=== PATIENT | female | born 1970 | race Caucasian/White ===

== ENCOUNTER 2019-12-16 10:05 | Emergency (ER) | payer OTHER, SELFPAY ==
--- NOTE | ~2019-12-16 | XR_ITS ---
XR ankle RT min 3V DATE: 12/16/2019 10:31 INDICATION: Medial ankle pain TECHNIQUE: 4 views COMPARISON: 11/09/2016 right ankle FINDINGS: There is an up to 0.5 mm wide approximately 1.5 mm long calcification or small smooth corti renny bone density situated approximately 1.5 mm medial to the lower aspect of the medial malleolus of the distal tibia. This is a new finding since 11/09/2016 and may be a small soft tissue calcification or small cortical avulsion injury, likely chronic due to the smooth margins. There is mild soft tissu e swelling of the medial aspect of the ankle. No fracture, dislocation or disruption of ankle mortise is evident otherwise. IMPRESSION: Mild medial soft tissue swelling Reviewed, dictated and finalized at location A.
[2019-12-16 10:19] VITALS: BP 126/74; PULSE 94; RESP 16; TEMP 37.1; O2SAT 97
--- NOTE | 2019-12-16 10:22 | ED.GENADULT ---
HPI - General Adult General Chief complaint: Extremity Injury, Lower Stated complaint: right ankle pain Source: patient and RN notes reviewed Mode of arrival: ambulatory Limitations: no limitations History of Present Illness HPI narrative: This is a 49 years old female presented office for evaluations of right ankle pain for 10 days. Symptoms began after she was playing tennis. She does not remember rolling her ankle however she complained of pain after she played tennis. She has been tented her symptoms with elevation, Favian wrap, and pain medication [id number]. Admits to history of fifth metatarsal fracture in the past. Denies any other injury. Related Data Allergies Allergy/AdvReac Type Severity Reaction Status Date / Time pseudoephedrine Allergy Unknown anxious Verified 05/20/19 11:05 PSEUDOEPHEDRINE HCL Allergy Mild ANXIOUS Uncoded 05/20/19 11:05 Review of Systems Review of Systems: Narrative: CONSTITUTIONAL: Denies feelingill CARDIOVASCULAR: Denies chest injury RESPIRATORY: Denies dyspnea, cough GASTROINTESTINAL: Denies abdominal pain, nausea, vomiting SKIN: Reports bruising on her right ankle initially; but not currently MUSCULOSKELETAL: Reports right ankle pain especially with walking NEUROLOGIC: Denies lightheaded All other systems reviewed are negative, except as documented in HPI. [facility] Past Medical History Medical History (Updated 12/16/19 @ 11:05 by BIANCA Sheppard) Bilateral bunions HTN (hypertension) Family History Family History Mother Family history of gallbladder disease Social History Social History Smoking status: Never smoker Second hand tobacco smoke exposure: No Alcohol intake: never Substance use: never Substance use type: does not use Gender identity (if verbalized by the patient): Female Comments At time of signature, I agree with nursing past medical, surgical, social and family history. There is no relevant family history pertinent to the presenting complaint. Exam Narrative: Exam Narrative: GENERAL: This is a well-nourished, well-developed patient, in no apparent distress. CARDIOVASCULAR: Regular rate and rhythm without murmurs, gallops, or rubs. RESPIRATORY: Clear to auscultation. Breath sounds equal bilaterally. No wheezes, rales, or rhonchi. GASTROINTESTINAL: Abdomen soft, non-tender, nondistended. Bowel sounds are active. No hepato-splenomegaly, or palpable masses. No guarding. SKIN: warm, intact with no suspicious lesions or rash, good texture and turgor. NEURO: awake, alert, and oriented to person, place and time. There were no obvious focal neurologic abnormalities. EXTREMITIES: The right ankle is NOT swollen; however there is tender over the media aspect over distal fibular process but the skin is intact and there is no ligamentous instability. There is no deformity. The foot and toes are warm and well-perfused. Sensation to pain and light touch is intact. Bunion over great toe noted. Course Vital Signs Vital signs: Vital Signs Temperature 98.7 F 12/16/19 10:19 Pulse Rate 94 12/16/19 10:19 Respiratory Rate 16 12/16/19 10:19 Blood Pressure 126/74 12/16/19 10:19 Pulse Oximetry 97 12/16/19 10:19 Temperature 98.7 F 12/16/19 10:19 Pulse Rate 94 12/16/19 10:19 Respiratory Rate 16 12/16/19 10:19 Blood Pressure 126/74 12/16/19 10:19 Pulse Oximetry 97 12/16/19 10:19 Medical Decision Making MDM Narrative Medical decision making narrative: Discharge instructions reviewed with patient, as well as provided in writing per nursing staff. The instructions also include specific and strict return/GO TO THE ER as well as f/u information. All questions have been answered, and the patient deny any further questions with discharge and discharge plan. Differential Diagnosis Differential Diagnosis: fracture, sprain,s
== END 2019-12-16 11:10 | disposition home or self-care (01) ==
PROVIDERS: Emergency Provider Nurse Practitioner; PCP Family Medicine
DX: S93.401A Sprain of unspecified ligament of right ankle, initial encounter (principal); S96.911A Strain of unspecified muscle and tendon at ankle and foot level, right foot, initial encounter; I10 Essential (primary) hypertension; X58.XXXA Exposure to other specified factors, initial encounter; Y93.73 Activity, racquet and hand sports
CPT/HCPCS: 73610; 99213; G0463

== ENCOUNTER 2020-03-17 17:48 | Outpatient (CLI) | payer OTHER, SELFPAY ==
--- NOTE | ~2020-03-17 | XR_ITS ---
EXAMINATION: XR elbow LT min 3V DATE: 03/17/2020 18:12 INDICATION: Left elbow pain TECHNIQUE: Anteroposterior, two oblique and lateral views of the left elbow were obtained. COMPARISON: None. FINDINGS: Alignment is normal. No fracture or joint effusion. Joint spaces are normal. There is mild posterior soft tissue swelling overlying the olecranon. No radiopaque foreign body is identified. IMPRESSION: 1. Mild posterior soft tissue swelling without associated osseous abnormality. Reviewed, dictated and finalized at location A.
== END 2020-03-17 17:49 | disposition home or self-care (01) ==
PROVIDERS: PCP Family Medicine; Visit Provider Family Medicine
DX: M25.422 Effusion, left elbow (principal); M79.89 Other specified soft tissue disorders
CPT/HCPCS: 73080

== ENCOUNTER 2020-04-14 15:19 | Outpatient (CLI) | payer OTHER, SELFPAY ==
--- NOTE | ~2020-04-14 | XR_ITS ---
EXAMINATION: XR chest 2V 04/14/2020 15:52 INDICATION: Shortness of breath. Headache. PROCEDURE: 2 view chest COMPARISON: 08/02/2015 FINDINGS: The lungs are clear. The cardiomediastinal silhouette is within normal limits. There are no pleural effusions. There is no pneumothorax suspected. IMPRESSION: 1: NO ACUTE CARDIOPULMONARY DISEASE. Reviewed, dictated and finalized at location B.
[2020-04-14 16:20] LABS: Hematocrit 41.6 % (37.0-47.0); Hemoglobin 14.6 g/dL (12.0-15.0); Mean Corpuscular HGB Conc 35.1 g/dl (32-36); Mean Corpuscular Hemoglobin 30.8 pg (26-34); Mean Corpuscular Volume 87.8 fl (80-100); Mean Platelet Volume 9.8 fl (7.4-10.4); Platelet Count Result 171 k/mm3 (150-375); Red Blood Count 4.74 M/mm3 (4.2-5.4); Red Cell Distribution Width 11.9 % (11.5-14.5); White Blood Count 20.6 K/mm3 (4.5-10.0)
[2020-04-14 16:47] LABS: Band Neutrophils Percent 8 % (0-6); Eosinophils Percent Manual 1 % (0-4); Lymphocytes Absolute Manual 2.67 K/mm3 (1.1-4.5); Monocytes Percent Manual 1 % (3-9); Neutrophils Absolute Manual 17.51 K/mm3 (1.7-7.2); Neutrophils Percent Manual 77 % (46-73); Total Cells Counted 100
[2020-04-14 16:49] LABS: Platelet Estimate Adequate (Adequate)
[2020-04-14 16:56] LABS: Erythrocyte Sedimentation Rate 19 mm/hr (0-20)
== END 2020-04-14 15:20 | disposition home or self-care (01) ==
PROVIDERS: PCP Family Medicine; Visit Provider Physician Assistant
DX: R06.02 Shortness of breath (principal); R50.9 Fever, unspecified
CPT/HCPCS: 36415; 71046; 85025; 85652

== ENCOUNTER → 2021-08-29 16:05 | Outpatient (CLI) | payer OTHER, SELFPAY ==
--- NOTE | ~2021-08-29 | MM_ITS ---
EXAMINATION: MM screening gauri BI w bee HISTORY: Screening TECHNIQUE: Craniocaudal and mediolateral oblique 3-D tomosynthesis images were obtained and synthetic 2-D images were generated. CAD analysis was submitted and interpreted. COMPARISON: Comparison to multiple prior studies sequentially, with oldest reviewed study dated 08/2013. BREAST PARENCHYMAL COMPOSITION: The breasts are almost entirely fatty. FINDINGS: There is no evidence of suspicious mass, calcification, or architectural distortion to sugg est malignancy in either breast. There has been no suspicious interval change. IMPRESSION: 1. No mammographic evidence of malignancy. 2. Recommend routine screening mammography in one year. BI-RADS Category 1: Negative Reviewed, dictated and finalized at location A. 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
== END ==
PROVIDERS: Visit Provider Nurse Practitioner Obstetrics & Gynecology
DX: Z12.31 Encounter for screening mammogram for malignant neoplasm of breast (principal)
CPT/HCPCS: 77063; 77067

== ENCOUNTER → 2021-11-23 08:50 | Outpatient (CLI) | payer OTHER, SELFPAY ==
--- NOTE | ~2021-11-23 | MMUS_ITS ---
EXAMINATION: MM diagnostic gauri LT w bee, US breast LT limited HISTORY: Left breast pain. Left breast lump deep along the chest wall. TECHNIQUE: Full field and spot left MLO, MLO and CC 3-D tomosynthesis images were performed and synth etic 2-D images were generated. Rotated lateral CC and rotated medial CC views. CAD analysis was subm itted and interpreted. High resolution targeted left breast ultrasound at area of clinical complaint of left breast lump was performed. COMPARISON: 08/29/2021, 02/03/2019, 01/09/2018 bilateral screening mammogram examinations BREAST PARENCHYMAL COMPOSITION: The breasts are almost entirely fatty. FINDINGS: MAMMOGRAPHIC FINDINGS: No suspicious mass or architectural distortion, malignant calcification, skin thickening or retractio n or significant new or developing density is detected. ULTRASOUND: No suspicious mass or shadowing is detected Clinical complaint at 11:00 6 cm from the nipple. IMPRESSION: 1. No mammographic evidence of malignancy 2. Routine mammographic screening is recommended BI-RADS Category 1: Negative Reviewed, dictated and finalized at location A. IMPRESSION: 1. No mammographic evidence of malignancy 2. Routine mammographic screening is recommended BI-RADS Category 1: Negative
== END ==
PROVIDERS: PCP Family Medicine; Visit Provider Nurse Practitioner Obstetrics & Gynecology
DX: N64.4 Mastodynia (principal)
CPT/HCPCS: 76642; 77061; 77065; G0279

== ENCOUNTER 2022-06-04 08:50 | Day surgery (SDC) | payer OTHER, SELFPAY ==
[2022-05-30 11:36] VITALS: BMI 25.4
[2022-06-04 09:30] VITALS: BP 124/83; PULSE 77; RESP 20; TEMP 36.4; O2SAT 100
[2022-06-04] MEDS: LACTATED RINGERS 1,000 ML 150 ML IV CONT (09:53)
--- NOTE | 2022-06-04 10:11 | P.PNAN_ITS ---
Anes - Initial Pre Proc Eval Procedure: Operation Date: 06/04/22 10:30 Proposed Procedures p Screening Colonoscopy - Dada Foster MD Date/Time: 06/04/22 10:11 Surgeon: Dada Foster MD Pre Op Diagnosis: Neoplasm Screening Patient Data Age: 52 Gender: F Height: 1.6 m Weight: 64.8 kg Last Vital Signs Temp 36.4 C 06/04/22 09:30 Pulse 77 06/04/22 09:30 Resp 20 06/04/22 09:30 BP 124/83 06/04/22 09:30 Pulse Ox 100 06/04/22 09:30 O2 Del Method Room Air 06/04/22 09:30 Allergies Allergy/AdvReac Type Severity Reaction Status Date / Time augmentin AdvReac Intermediate Other Uncoded 06/04/22 09:28 Home Medications Medication Instructions Recorded Confirmed Type drospirenone (contraceptive) 4 mg 1 tablet PO DAILY 01/22/22 06/04/22 History (28) tablet (Slynd) lisinopril 10 1 tablet PO DAILY #90 tabs 01/22/22 06/04/22 Rx mg-hydrochlorothiazide 12.5 mg tablet Patient hx anesthesia problems: none Family hx anesthesia problems: none Results Review: All pre-operative results and documents have been reviewed as part of the pre- operative evaluation. [facility] Past Medical History Medical History Avulsion injury of ankle region Bilateral bunions Cat scratch fever Deltoid (ligament), ankle sprain Fall Hallux valgus Hammertoe, bilateral HTN (hypertension) Seizures Sprain of deltoid ligament of unspecified ankle, subsequent encounter Vision abnormalities Surgical History Surgical History History of section complicating History of laparoscopic cholecystectomy Family History Family History Mother Family history of gallbladder disease Unknown Hypertension Cardiovascular disease Social History Social History Social History: Smoking status: Never smoker Second hand tobacco smoke exposure: No Alcohol intake: current Substance use: never Substance use type: does not use Living arrangements: with family Gender identity (if verbalized by the patient): Female Sexual Orientation (if Verbalized by the Patient): Straight or Heterosexual Spiritual care concerns: No Anes - Eval Final PreProcedure Day of Procedure 06/04/22 10:11 Patient weight: normal Heart: regular rate and rhythm Lungs: clear to auscultation Airway: Mallampati scale class II Neurological: alert and oriented Last oral intake: >/= 8 hours ASA classification: II Emergent: no Anesthetic plan: proceed Anesthesia type and monitoring: general GIVS and standard monitoring Results Review: All pre-operative results and documents have been reviewed as part of the pre- operative evaluation. Informed Consent: The patient's anesthetic plan and its attendant risks and benefits were discussed with the patient/family/POA. Questions were solicited and answers provided to the satisfaction of the patient/family/POA.
--- NOTE | 2022-06-04 10:32 | PM.HPGS ---
History of Present Illness History of Present Illness Consent: Risks, benefits, and alternatives have been discussed and questions answered. Patient agrees to proceed with procedure. Chief complaint: Neoplasm Screening Narrative: Pamela Lan is a 52 year old female here for screening colonoscopy, last one about 10 years ago Review of Systems Constitutional: Constitutional: Denies headache(s) and Denies weakness Eyes: Eyes: Denies blurry vision ENT: Reports Normal hearing present, Denies headache(s) and Denies neck pain Cardiovascular: Cardiovascular: Denies chest pain and Denies dyspnea Respiratory: Respiratory: Denies dyspnea Gastrointestinal: Gastrointestinal: Reports no additional gastrointestinal complaints Genitourinary: Genitourinary: Denies dysuria Musculoskeletal: Musculoskeletal: Denies neck pain Integumentary/Breasts: Skin/Breast: Denies dry skin Neurologic: Reports Normal hearing present, Denies headache(s) and Denies weakness Psychiatric: Psychiatric: Denies anxiety Endocrine: Endocrine: Denies change in body appearance Hematologic/Lymphatic: Hematologic/Lymphatic: Denies easy bleeding Allergic/Immunologic: Allergic/Immunologic: Denies urticaria PMFSH Past Medical History Medical History Avulsion injury of ankle region Bilateral bunions Cat scratch fever Deltoid (ligament), ankle sprain Fall Hallux valgus Hammertoe, bilateral HTN (hypertension) Seizures Sprain of deltoid ligament of unspecified ankle, subsequent encounter Vision abnormalities Surgical History Surgical History History of section complicating History of laparoscopic cholecystectomy Family History Family History Mother Family history of gallbladder disease Unknown Hypertension Cardiovascular disease Social History Social History Social History: Smoking status: Never smoker Second hand tobacco smoke exposure: No Alcohol intake: current Substance use: never Substance use type: does not use Living arrangements: with family Gender identity (if verbalized by the patient): Female Sexual Orientation (if Verbalized by the Patient): Straight or Heterosexual Spiritual care concerns: No Meds Home Medications and Allergies Home Medications Medication Instructions Recorded Confirmed Type drospirenone (contraceptive) 4 mg 1 tablet PO DAILY 01/22/22 06/04/22 History (28) tablet (Slynd) lisinopril 10 1 tablet PO DAILY #90 tabs 01/22/22 06/04/22 Rx mg-hydrochlorothiazide 12.5 mg tablet Allergies Allergy/AdvReac Type Severity Reaction Status Date / Time augmentin AdvReac Intermediate Other Uncoded 06/04/22 09:28 Vital Signs Vital Signs - 24 hr 06/04/22 09:30 Temperature 97.6 F Pulse Rate 77 Respiratory Rate 20 Blood Pressure 124/83 Pulse Oximetry 100 Oxygen Delivery Room Air Exam Const: General: comfortable and no acute distress HENMT: Face/Nose/Sinus: Normal nares present Eyes: General: appearance normal, both eyes and all related structures Neck: Neck: no JVD Resp: Auscultation: clear to auscultation bilaterally Cardio: Rate: regular rate Rhythm: regular rhythm GI: Inspection: non-distended GI Palp: Yes Soft to palpation Skin: General skin exam: normal color Neuro: General: gait normal Speech: normal speech Extrem: General: normal to inspection Psych: Mental Status: mental status grossly normal Assessment and Plan Assessment and plan (1) Colon cancer screening: Code(s): Z12.11 - Encounter for screening for malignant neoplasm of colon Status: Acute Assessment and Plan: colonoscopy
[2022-06-04 10:55] VITALS: BP 88/66; PULSE 80; RESP 16; O2SAT 96
[2022-06-04 11:05] VITALS: BP 97/71; PULSE 76; RESP 16; O2SAT 100
[2022-06-04 11:15] VITALS: BP 106/70; PULSE 86; RESP 20; O2SAT 100
--- NOTE | 2022-06-04 11:33 | WPDANESPN ---
Anes - Prog Note Post-Op Date/Time: 06/04/22 11:33 Cardiovascular status: normal Respiratory status: normal Airway patency: baseline Mental status: baseline Post-Op hydration status: normal Vital Signs: Last Vital Signs Temp 36.4 C 06/04/22 09:30 Pulse 86 06/04/22 11:15 Resp 20 06/04/22 11:15 BP 106/70 06/04/22 11:15 Pulse Ox 100 06/04/22 11:15 O2 Del Method Room Air 06/04/22 11:15 Pain Score (VAS): 0 I/O: Intake & Output 06/03/22 06/04/22 06/04/22 23:59 07:59 15:59 Intake Total 300 Balance 300 Patient Feedback: Patient satisfied with anesthetic care.
== END 2022-06-04 11:35 | disposition home or self-care (01) ==
PROVIDERS: PCP Family Medicine; Visit Provider Internal Medicine Gastroenterology
PROC: 0DJD8ZZ Inspection of Lower Intestinal Tract, Via Natural or Artificial Opening Endoscopic (ICD-10-PCS; CPT 45378; principal; 2022-06-04 10:30)
DX: Z12.11 Encounter for screening for malignant neoplasm of colon (principal)
CPT/HCPCS: 45378

== ENCOUNTER → 2023-03-19 16:08 | Outpatient (CLI) | payer OTHER, SELFPAY ==
--- NOTE | ~2023-03-19 | MM_ITS ---
EXAMINATION: MM screening gauri BI w bee HISTORY: Screening mammogram TECHNIQUE: Craniocaudal and mediolateral oblique 3-D tomosynthesis images were obtained and synthetic 2-D images were generated. CAD analysis was submitted and interpreted. COMPARISON: 11/23/2021 diagnostic left mammogram and limited left breast ultrasound 08/29/2021, 02/03/2019 bilateral screening mammogram examinations BREAST PARENCHYMAL COMPOSITION: There are scattered areas of fibroglandular density. FINDINGS: Stable small benign appearing circumscribed low-density intramammary lymph nodes in the out er right breast, unchanged since 02/03/2019. There is no evidence of suspicious mass, calcification, o r architectural distortion to suggest malignancy in either breast. There has been no suspicious inter kandy change. IMPRESSION: 1. No mammographic evidence of malignancy. 2. Recommend routine screening mammography in one year. BI-RADS Category 2: Benign finding(s). Reviewed, dictated and finalized at location A.
== END ==
PROVIDERS: PCP Nurse Practitioner Obstetrics & Gynecology; Visit Provider Nurse Practitioner Obstetrics & Gynecology
DX: Z12.31 Encounter for screening mammogram for malignant neoplasm of breast (principal)
CPT/HCPCS: 77063; 77067

== ENCOUNTER 2023-12-17 16:21 | Outpatient (CLI) | payer OTHER, SELFPAY ==
[2023-12-17 17:19] LABS: Alanine Aminotransferase 31 U/L (6-35); Albumin Level 5.1 g/dL (3.5-5.1); Alkaline Phosphatase 101 U/L (38-126); Anion Gap 11 mmol/L (4-12); Aspartate Amino Transferase 34 U/L (14-36); Bilirubin,Total 0.9 mg/dL (0.2-1.3); Blood Urea Nitrogen 8 mg/dL (7-17); CRP < 0.5 mg/dL (<1.0); Calcium 9.8 mg/dL (8.4-10.2); Carbon Dioxide 27 mmol/L (22-30); Chloride 100 mmol/L (98-107); Estimated Glomerular Filt Rate > 60; Glucose 98 mg/dL (65-110); Potassium 4.2 mmol/L (3.4-5.0); Sodium 138 mmol/L (137-145)
[2023-12-17 17:41] LABS: Erythrocyte Sedimentation Rate 16 mm/hr (0-20)
[2023-12-17 18:06] LABS: Free T4 Free Thyroxine 1.04 ng/mL (0.78-2.19)
== END 2023-12-17 16:22 | disposition home or self-care (01) ==
LOC: ANHLAB 16:22
PROVIDERS: PCP Family Medicine; Visit Provider Physician Assistant
DX: R10.9 Unspecified abdominal pain (principal); R19.7 Diarrhea, unspecified; R51.9 Headache, unspecified
CPT/HCPCS: 36415; 80053; 84439; 84443; 85652; 86140

== ENCOUNTER 2023-12-18 11:54 | Outpatient (CLI) | payer OTHER, SELFPAY ==
[2023-12-18 12:31] LABS: Basophils Absolute Auto 0.1 K/mm3 (0.0-0.1); Basophils Percent Auto 0.6 % (0.2-1.2); Eosinophils Absolute Auto 0.1 K/mm3 (0-0.3); Eosinophils Percent Auto 1.1 % (0-4.4); Hemoglobin 16.2 g/dL (12.0-15.0); Immature Granulocyte Absolute 0.02 K/mm3 (0.00-0.031); Immature Granulocyte Percent A 0.3 % (0-0.5); Lymphocytes Absolute Auto 2.54 K/mm3 (0.9-3.2); Lymphocytes Percent Auto 32.4 % (18.3-44.2); Mean Corpuscular HGB Conc 35.2 g/dl (32-36); Mean Corpuscular Hemoglobin 30.2 pg (26-34); Mean Corpuscular Volume 85.7 fl (80-100); Mean Platelet Volume 10.6 fl (7.4-10.4); Monocytes Absolute Auto 0.5 K/mm3 (0.1-0.6); Monocytes Percent Auto 6.8 % (2.6-8.5); Neutrophils Absolute Auto 4.6 K/mm3 (1.3-6.7); Neutrophils Percent Auto 58.8 % (45.5-73.1); Platelet Count Result 191 k/mm3 (150-375); Red Blood Count 5.37 M/mm3 (4.2-5.4); Red Cell Distribution Width 11.7 % (11.5-14.5); White Blood Count 7.9 K/mm3 (4.5-10.0)
[2023-12-24 20:39] LABS: Calprotectin, Stool 14 mcg/g
== END 2023-12-18 11:55 | disposition home or self-care (01) ==
LOC: ANHLAB 11:56
PROVIDERS: PCP Family Medicine; Visit Provider Physician Assistant
DX: R10.9 Unspecified abdominal pain (principal); R19.7 Diarrhea, unspecified; R51.9 Headache, unspecified
CPT/HCPCS: 36415; 83993; 85025; 87045; 87427; 87449

== ENCOUNTER 2024-01-05 13:45 | Emergency (ER) | payer OTHER, SELFPAY ==
--- NOTE | ~2024-01-05 | XR_ITS ---
Clinical Indication: Cough PA and lateral views of the chest: Comparison: 04/14/2020 Findings: The lungs are clear, without evidence of focal consolidation or pleural effusion. Cardiome diastinal silhouette is within normal limits. Bones and soft tissues are unremarkable. Impression: Normal chest. Reviewed, dictated and finalized at location . Impression: Normal chest.
--- NOTE | 2024-01-05 13:54 | ED.URI ---
HPI - URI/Sore Throat General Chief Complaint: Upper Respiratory Infection Stated Complaint: SOB/COUGH Time Seen by Provider: 01/05/24 13:54 History of Present Illness HPI Narrative: patient presents with 10 day history of cough, congestion, sinus pain, sinus pressure. She reports that she has been taking [id number] Coricidin without relief. She has also been treated for an upper respiratory infection. She took prednisone and continues to use an albuterol inhaler. She reports minimal relief. She has been taking 100 mg Tessalon Perles, states these are not helpful. Earlier this week she was put on a Z-Rubens, reports this has not changed her symptoms at all Related Data Home Medications Medication Instructions Recorded Confirmed lisinopril 10 tablet 01/05/24 mg-hydrochlorothiazide 12.5 mg tablet norethindrone (contraceptive) 0.35 mg 01/05/24 01/05/24 mg tablet Allergies Allergy/AdvReac Type Severity Reaction Status Date / Time augmentin AdvReac Intermediate Other Uncoded 12/17/23 15:29 Review of Systems Review of Systems: All systems reviewed & are unremarkable except as noted in HPI and below Constitutional: Constitutional: Reports no additional constitutional complaints ENT: Reports system reviewed and no additional complaints, except as documented, Reports facial pain, Reports headache(s), Reports nasal congestion, Reports nasal discharge, Reports post nasal drip, Reports sinus pain and Reports sinus pressure Cardiovascular: Cardiovascular: Reports no additional cardiovascular complaints Respiratory: Respiratory: Reports no additional respiratory complaints, Reports cough and Reports pain with cough Gastrointestinal: Gastrointestinal: Reports no additional gastrointestinal complaints PMFSH Past Medical History Medical History Avulsion injury of ankle region Bilateral bunions Cat scratch fever Deltoid (ligament), ankle sprain Fall Hallux valgus Hammertoe, bilateral HTN (hypertension) Seizures Sprain of deltoid ligament of unspecified ankle, subsequent encounter Vision abnormalities Surgical History Surgical History History of section complicating History of laparoscopic cholecystectomy Family History Family History Mother Family history of gallbladder disease Unknown Hypertension Cardiovascular disease Social History Social History Social History: Smoking status: Never smoker Second hand tobacco smoke exposure: No Alcohol intake: current Alcohol use details: Occasionally Substance use: never Substance use type: does not use Do You Feel Safe in your Home?: Yes Lack of Transportation: No Lack of Food: Never True Current Housing: I Have Housing Concerned About Future Housing: No Difficulty Paying Gas/Electric Bills: No Difficulty Paying for Meds: No Currently Unemployed: No Education: Bachelor's Degree Difficulty w/ Childcare or Family Care: No Living arrangements: with family Occupation/Education: occupation 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 Gender identity (if verbalized by the patient): Female Sexual Orientation (if Verbalized by the Patient): Straight or Heterosexual Spiritual care concerns: No Exam Const: General: cooperative, no acute distress, alert and awake Orientation/consciousness: oriented to person, oriented to place and oriented to time HENMT: Head: normal to inspection Ears: TM abnormal dull and with fluid behind the TM on the left Face/Nose/Sinus: Nasal discharge present purulent Face and sinus: sinus tenderness maxillary Mouth: Yes moist mucous membranes Throat: posterior oropharynx abnormal erythema and postnasal drainage Resp: Effort & Inspecti
[2024-01-05 13:55] VITALS: BP 156/83; PULSE 90; RESP 16; TEMP 37.1; O2SAT 99
== END 2024-01-05 14:35 | disposition home or self-care (01) ==
PROVIDERS: Emergency Provider Nurse Practitioner Family; PCP Family Medicine
DX: J01.00 Acute maxillary sinusitis, unspecified (principal); I10 Essential (primary) hypertension
CPT/HCPCS: 71046; 99213; G0463

== ENCOUNTER 2024-04-21 14:06 | Outpatient (CLI) | payer OTHER, SELFPAY ==
--- NOTE | ~2024-04-21 | US_ITS ---
Right submandibular ULTRASOUND Ordering provider: Fabienne Armenta PA-C History: . R59.0 - Localized enlarged lymph nodes . Comparison: None. FINDINGS/impression: Multiple lymph nodes are seen with the largest measures 2.6 x 0.6 x 1.1 cm and 1.1 x 1 x 0.7 cm. Reviewed, dictated and finalized at location A.
== END 2024-04-21 14:07 | disposition home or self-care (01) ==
PROVIDERS: PCP Family Medicine; Visit Provider Student in an Organized Health Care Education/Training Program
DX: R59.0 Localized enlarged lymph nodes (principal)
CPT/HCPCS: 76536

== ENCOUNTER 2024-05-08 09:28 | Outpatient (CLI) | payer OTHER, SELFPAY ==
--- NOTE | ~2024-05-08 | CT_ITS ---
EXAMINATION: CT soft tissue neck wo con DATE: 05/08/2024 10:01 INDICATION: Generalized enlarged lymph nodes. TECHNIQUE: Computed tomography (CT) of the neck was performed without intravenous contrast. Automated exposure control and iterative reconstruction technique were employed. The dose-length product was 3 08.62 mGy-cm. COMPARISON: Ultrasound 04/21/2024 FINDINGS: There are no pathologically enlarged lymph nodes. There is mild mucosal thickening in the p aranasal sinuses. The mastoid air cells are normal. Dental implants are noted. There is moderate cerv ical spondylosis. IMPRESSION: 1. No lymphadenopathy. Reviewed, dictated and finalized at location A. E ASSESSOR IMPRESSION: 1. No lymphadenopathy.
== END 2024-05-08 09:29 | disposition home or self-care (01) ==
LOC: GOSHIMG 09:39
PROVIDERS: PCP Family Medicine; Visit Provider Student in an Organized Health Care Education/Training Program
DX: R59.1 Generalized enlarged lymph nodes (principal)
CPT/HCPCS: 70490

== ENCOUNTER 2024-11-24 16:11 | Outpatient (CLI) | payer OTHER, SELFPAY ==
--- NOTE | ~2024-11-24 | MM_ITS ---
EXAMINATION: MM screening gauri BI w bee HISTORY: Screening mammogram TECHNIQUE: Craniocaudal and mediolateral oblique 3-D tomosynthesis images were obtained and synthetic 2-D images were generated. CAD analysis was submitted and interpreted. COMPARISON: 03/19/2023 through 12/28/2015 BREAST PARENCHYMAL COMPOSITION: There are scattered areas of fibroglandular density. FINDINGS: There is no evidence of suspicious mass, calcification, or architectural distortion to sug gest malignancy in either breast. There has been no suspicious interval change. IMPRESSION: 1. No mammographic evidence of malignancy. 2. Recommend routine screening mammography in one year. BI-RADS Category 1: Negative Reviewed, dictated and finalized at location B.
== END 2024-11-24 16:12 | disposition home or self-care (01) ==
LOC: MICIMG 16:12
PROVIDERS: PCP Family Medicine; Visit Provider Student in an Organized Health Care Education/Training Program
DX: Z12.31 Encounter for screening mammogram for malignant neoplasm of breast (principal)
CPT/HCPCS: 77063; 77067

== ENCOUNTER 2025-02-08 17:34 | Outpatient (CLI) | payer OTHER, SELFPAY ==
--- NOTE | ~2025-02-08 | CT_ITS ---
EXAMINATION: CT abdomen wo con DATE: 02/08/2025 17:59 INDICATION: Abdominal pain TECHNIQUE: Computed tomography (CT) of the abdomen and pelvis was performed without intravenous contr ast. The dose-length product was 193.53 mGy-cm. Automated exposure control and iterative reconstructi on technique were employed. COMPARISON: None. FINDINGS: There is dependent atelectasis. Heart size normal. No significant pleural or pericardial ef fusion. Multiple liver cysts. The spleen, pancreas, adrenal glands and kidneys are unremarkable. Stat us post cholecystectomy. Small fat-containing umbilical hernia. Nonobstructive bowel pattern. No free air or free fluid. There is mild thickening of the gastric antrum, suspicious for gastritis. No evid ence for perforation. IMPRESSION: 1. Mild thickening of the gastric antrum, suspicious for gastritis. 2: Liver cyst largest measuring 7 cm. Reviewed, dictated and finalized at location A.
--- OUTSIDE RECORDS SUMMARY | 2025-02-08 17:25 | XMS_ITS | Clinical Summary ---
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
--- OUTSIDE RECORDS SUMMARY | 2025-02-08 17:25 | XMS_ITS | Encounter Summary ---
Author Organization [facility] Address [address] [place] [address] Care Team Providers Care Manager Corporate Responsibility Name Role Phone Unavailable Primary Care Provider Unavailabl e Encounter Details Date Type Department Care Team (Late st Contact Info) Description 07/15/2006 Outpatient Historical [facility] Maternal and Ground Floor [address] [place] [address] Efrem Hooper MD [address] [facility] [address] [place] [address] Social History Tobacco Use Types Packs/Day Years Used Date Smoking Tobacco: Never Assessed Comments Unknown Sex and Gender Information Value Date Recorded Sex Assigned at Not on file Legal Sex Female 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
--- OUTSIDE RECORDS SUMMARY | 2025-02-08 17:25 | XMS_ITS | Encounter Summary ---
Author Organization [facility] Address [address] [place] [address] Care Team Providers Care Drywall Stripper Name Role Phone Unavailable Primary Care Provider Unavailabl e Encounter Details Date Type Department Care Team (Late st Contact Info) Description 08/12/[address] 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
--- OUTSIDE RECORDS SUMMARY | 2025-02-08 17:25 | XMS_ITS | Clinical Summary ---
Author Organization [address] Address [address] [place] [address] Care Team Providers Care Cake Maker Name Role Phone Aiden Ann MD Primary Care Provider Allergies No known active allergies Medications lisinopriL (PRINIVIL,ZESTRI L) 10 mg tablet Take by mouth Active norgestimate-eth inyl estradioL (ORTHO-CYCLEN) 0.25-35 mg-mcg per tablet Take 1 tablet by mouth daily Active Active Problems No known active problems Social History Tobacco Use Types Packs/Day Years Used Date Smoking Tobacco: Never Assessed Comments Unknown Sex and Gender Information Value Date Recorded Sex Assigned at Not on file 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 Gender Identity Not on file Sexual Orientation Not on file Last Filed Vital Signs Vital Sign Reading Time Taken Comments Blood Pressure 142/88 09/02/2024 5:05 PM CDT Pulse 96 09/02/2024 5:05 PM CDT Temperature 36.6 C (97.9 F) 09/02/2024 5:05 PM CDT Respiratory Rate 20 09/02/2024 5:05 PM CDT Oxygen Saturation 98% 09/02/2024 5:05 PM CDT Inhaled Oxygen Concentration - - Weight 70.8 kg (156 lb) 09/02/2024 5:05 PM CDT Height - - Body Mass Index - - Plan of Treatment Health Maintenance Due Date Last Done Comments Cervical Cancer Screening 1971 Colon Cancer Screening-Colonoscopy 1971 Depression Screening 1971 Hepatitis C Screening 1971 DTaP/Tdap/Td Vaccine (1 - Tdap) 1982 Hepatitis B Screening 1989 Regular Well Visit/Exam 18-64 1989 Zoster Vaccine (1 of 2) 2021 Breast Cancer Screening-Mammogram 08/29/2022 022 Influenza Vaccine (#1) 2025 Pneumococcal vaccine <65 Aged Out No longer eligible based on patient's age to complete this topic Insurance [facility] CHOICE PL[facility] HMO/PP[place] [address] Care Teams Cake Maker Relationship Specialty Start Date End Date Aiden Ann MD [address] [facility] [address] [place] [address] PCP - General Family Medicine 09/02/24
--- OUTSIDE RECORDS SUMMARY | 2025-02-08 17:25 | XMS_ITS | Clinical Summary ---
Author Organization [facility] [employer] Address [address] [facility] [place] [address] Care Team Providers Care Lens Fabricating Machine Tender Name Role Phone Veena Jalloh MD Primary Care Provider + Source Comments [facility] [employer],non-owned Affiliates and Associated Physician Practices is amultiple site organization consisting of ambulatory clinics and hospital sitesin [place], [place], [place] and [place]. This disclosure is being madepursuant to the Care Everywhere program and may not contain all information available regarding this patient. Last updated 18.[facility] [employer] Allergies No known active allergies Medications * Be aware that medications may not be up to date on this document. Alwaysverify current medications with the patient. LISINOPRIL PO Active norgestimate-eth inyl estradiol (SPRINTEC 28) 0.25-35 MG-MCG tablet Take 1 tablet by mouth once daily Active Social History Tobacco Use Types Packs/Day Years Used Date Smoking Tobacco: Never Smokeless Tobacco: Never Comments Unknown Sex and Gender Information Value Date Recorded Sex Assigned at Not on file Legal Sex Female 6:52 AM CDT Gender Identity Not on file Sexual Orientation Not on file Last Filed Vital Signs Vital Sign Reading Time Taken Comments Blood Pressure 128/86 07/27/2017 11:28 AM AIR ANTISUBMARINE OFFICER Pulse 85 07/27/2017 11:28 AM AIR ANTISUBMARINE OFFICER Temperature 37.1 C (98.8 F) 07/27/2017 11:28 AM AIR ANTISUBMARINE OFFICER Respiratory Rate 16 07/27/2017 11:28 AM AIR ANTISUBMARINE OFFICER Oxygen Saturation 99% 07/27/2017 11:28 AM AIR ANTISUBMARINE OFFICER Inhaled Oxygen Concentration - - Weight 59 kg (130 lb) 07/27/2017 11:28 AM AIR ANTISUBMARINE OFFICER Height 160 cm (5' 3) 07/27/2017 11:28 AM AIR ANTISUBMARINE OFFICER Body Mass Index 23.03 07/27/2017 11:28 AM AIR ANTISUBMARINE OFFICER Plan of Treatment Health Maintenance Due Date Last Done Comments COLOGUARD (AGES 45-75) - COL ON CA SCREENING 1971 COLON MONITORING 1971 COLONOSCOPY - COLON CA SCREENING 1971 CT COLONOGRAPHY - COLON CA SCREENING 1971 Colorectal Cancer Screening 1971 FIT - COLON CA SCREENING 1971 FLEX SIG - COLON CA SCREENING 1971 LIPID TESTING 1971 MAMMOGRAM 1971 HIV SCREENING 1986 HEPATITIS C SCREENING 03/17/1989 DTAP/TDAP/TD VACCINES (1 - Tdap) 1990 HEPATITIS B VACCINE (1 of 3 - 19+ 3-dose series) 1990 PNEUMOCOCCAL VACCINE 50+ (1 of 1 - PCV) 2021 ZOSTER VACCINE (1 of 2) 2021 COVID-19 VACCINE (1 - 2023-2 5 season) 2024 DEPRESSION SCREENING 06/24/2024 INFLUENZA VACCINE (#1) 2025 HIB VACCINE Aged Out No longer eligi ble based on patient's age to complete this topic HPV VACCINE Aged Out No longer eligi ble based on patient's age to complete this topic MENINGOCOCCAL (Group B) VACC INE SHARED DECISION-MAKING Aged Out No longer eligibl e based on patient's age to complete this topic MENINGOCOCCAL GROUPS A/C/Y/W VACCINE Aged Out No longer eligible b ased on patient's age to complete this topic Insurance [facility] Care Teams Lens Fabricating Machine Tender Relationship Specialty Start Date End Date Veena Jalloh MD [address] [place] [phone] PCP - General Family Medicine 07/27/17
--- OUTSIDE RECORDS SUMMARY | 2025-02-08 17:25 | XMS_ITS | Encounter Summary ---
Author Organization [facility] Address 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
--- OUTSIDE RECORDS SUMMARY | 2025-02-08 17:25 | XMS_ITS | Encounter Summary ---
Author Organization [facility] Address [address] [place] [address] Care Team Providers Care Hvac/R Instructor Name Role Phone Unavailable Primary Care Provider Unavailabl e Encounter Details Date Type Department Care Team (Late st Contact Info) Description 07/15/2006 Outpatient Historical [facility] Maternal and Ground Floor [address] [place] [address] Efrem Hooper MD [address] [facility] [address] [place] [address] Social History Tobacco Use Types Packs/Day Years Used Date Smoking Tobacco: Never Assessed Comments Unknown Sex and Gender Information Value Date Recorded Sex Assigned at Not on file Legal Sex Female 5:19 AM HOG RIBBER Gender Identity Not on file Sexual Orientation Not on file documented as of this encounter Plan of Treatment Not on file documented as of this encounter Visit Diagnoses Not on filedocumented in this encounter
--- OUTSIDE RECORDS SUMMARY | 2025-02-08 17:25 | XMS_ITS | Encounter Summary ---
Author Organization [facility] Address [address] [place] [address] Care Team Providers Care Magisterial District Judge Name Role Phone Unavailable Primary Care Provider Unavailabl e Encounter Details Date Type Department Care Team (Latest Contact Info) Description 07/15/2006 [facility] Historical [facility] Hiro Telles MD [address] [place] [id number] Elderly Multigravida with Antepartum Condition or Complication (Primary Dx) Social History Tobacco Use Types Packs/Day Years Used Date Smoking Tobacco: Never Assessed Comments Unknown Sex and Gender Information Value Date Recorded Sex Assigned at Not on file Legal Sex Female 5:19 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
[2025-02-08 18:20] LABS: Add Urine Microscopic? NO; Appearance Urine Clear (Clear); Glucose Urine UA Negative (Negative); Hematocrit 44.7 % (37.0-47.0); Hemoglobin 15.3 g/dL (12.0-15.0); Immature Granulocyte Percent A 0.4 % (0-0.5); Leukocyte Esterase Ur Negative LEU/UL (Negative); Lymphocytes Absolute Auto 3.33 K/mm3 (0.9-3.2); Mean Corpuscular HGB Conc 34.2 g/dl (32-36); Mean Corpuscular Hemoglobin 30.1 pg (26-34); Mean Corpuscular Volume 87.8 fl (80-100); Nitrate Urine Negative (Negative); Nucleated Red Blood Cells Absolute Auto 0.000 K/mm3 (0.0-0.012); Nucleated Red Blood Cells Perc 0.0 % (0.0-0.2); Platelet Count Result 209 k/mm3 (150-375); Red Blood Count 5.09 M/mm3 (4.2-5.4); Specific Grav Ur 1.007 (1.001-1.035); White Blood Count 11.0 K/mm3 (4.5-10.0)
[2025-02-08 18:36] LABS: Alanine Aminotransferase 39 U/L (6-35); Albumin Level 4.6 g/dL (3.5-5.1); Alkaline Phosphatase 90 U/L (38-126); Amylase 78 U/L (30-110); Anion Gap 10 mmol/L (4-12); Aspartate Amino Transferase 42 U/L (14-36); Bilirubin,Total 0.8 mg/dL (0.2-1.3); Blood Urea Nitrogen 7 mg/dL (7-17); Calcium 9.6 mg/dL (8.4-10.2); Carbon Dioxide 26 mmol/L (22-30); Chloride 102 mmol/L (98-107); Estimated Glomerular Filt Rate > 60; Glucose 105 mg/dL (65-110); Lipase 97 U/L (23-300); Potassium 3.7 mmol/L (3.4-5.0); Sodium 138 mmol/L (137-145); Total Protein 7.6 g/dL (6.3-8.2)
== END 2025-02-08 17:35 | disposition home or self-care (01) ==
PROVIDERS: PCP Family Medicine
DX: K31.89 Other diseases of stomach and duodenum (principal); K76.89 Other specified diseases of liver
CPT/HCPCS: 36415; 74150; 80053; 81003; 82150; 83690; 85025

== ENCOUNTER 2025-04-16 01:54 | Day surgery (SDC) | payer OTHER, SELFPAY ==
[2025-04-08 14:32] VITALS: BMI 26.6
--- OUTSIDE RECORDS SUMMARY | 2025-04-16 01:58 | XMS_ITS | Clinical Summary ---
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
--- OUTSIDE RECORDS SUMMARY | 2025-04-16 01:58 | XMS_ITS | Encounter Summary ---
Author Organization [facility] Address [address] [place] [address] Care Team Providers Care Print Production Manager Name Role Phone Unavailable Primary Care Provider Unavailabl e Encounter Details Date Type Department Care Team (Latest Contact Info) Description 07/15/2006 Outpatient Historical [facility] Hiro Telles MD [address] [place] [id number] Elderly Multigravida with Antepartum Condition or Complication (Primary Dx) Social History Tobacco Use Types Packs/Day Years Used Date Smoking Tobacco: Never Assessed Comments Unknown Sex and Gender Information Value Date Recorded Sex Assigned at Not on file Legal Sex Female 5:19 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
--- OUTSIDE RECORDS SUMMARY | 2025-04-16 01:58 | XMS_ITS | Encounter Summary ---
Author Organization [facility] Address [address] [place] [address] Care Team Providers Care Line Supply Name Role Phone Unavailable Primary Care Provider Unavailabl e Encounter Details Date Type Department Care Team (Late st Contact Info) Description 07/15/2006 Outpatient Historical [facility] Maternal and Ground Floor [address] [place] [address] Efrem Hooper MD [address] [facility] [address] [place] [address] Social History Tobacco Use Types Packs/Day Years Used Date Smoking Tobacco: Never Assessed Comments Unknown Sex and Gender Information Value Date Recorded Sex Assigned at Not on file Legal Sex Female 5:19 AM LOGISTICS TECH Gender Identity Not on file Sexual Orientation Not on file documented as of this encounter Plan of Treatment Not on file documented as of this encounter Visit Diagnoses Not on filedocumented in this encounter
--- OUTSIDE RECORDS SUMMARY | 2025-04-16 01:58 | XMS_ITS | Encounter Summary ---
Author Organization [facility] Address [address] [place] [address] Care Team Providers Care Home Appliances Mechanic Name Role Phone Unavailable Primary Care Provider Unavailabl e Encounter Details Date Type Department Care Team (Late st Contact Info) Description 07/15/2006 Outpatient Historical [facility] Maternal and Ground Floor [address] [place] [address] Efrem Hooper MD [address] [facility] [address] [place] [address] Social History Tobacco Use Types Packs/Day Years Used Date Smoking Tobacco: Never Assessed Comments Unknown Sex and Gender Information Value Date Recorded Sex Assigned at Not on file Legal Sex Female 5:19 AM STRATEGIC 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
--- OUTSIDE RECORDS SUMMARY | 2025-04-16 01:58 | XMS_ITS | Encounter Summary ---
Author Organization [facility] Address [address] [place] [address] Care Team Providers Care Legal Billing Coordinator Name Role Phone Unavailable Primary Care Provider Unavailabl e Encounter Details Date Type Department Care Team (Late st Contact Info) Description 08/16/2006 Outpatient Historical [facility] Hiro Telles MD [address] [facility] [address] [place] [address] Social History Tobacco Use Types Packs/Day Years Used Date Smoking Tobacco: Never Assessed Comments Unknown Sex and Gender Information Value Date Recorded Sex Assigned at Not on file Legal Sex Female 5:19 AM FACULTY NEUROPSYCHOLOGIST Gender Identity Not on file Sexual Orientation Not on file documented as of this encounter Plan of Treatment Not on file documented as of this encounter Visit Diagnoses Not on filedocumented in this encounter
--- OUTSIDE RECORDS SUMMARY | 2025-04-16 01:58 | XMS_ITS | Clinical Summary ---
Author Organization [facility] Address [address] [place] [address] Care Team Providers Care Clarity Specialists Name Role Phone Veena Jalloh MD Primary Care Provider + Source Comments [facility],non-owned Affiliates and Associated Physician Practices is amultiple site organization consisting of ambulatory clinics and hospital sitesin [place], [place], [place] and [place]. This disclosure is being madepursuant to the Care Everywhere program and may not contain all information available regarding this patient. Last updated 18.[facility] Allergies No known active allergies Medications * [...] Comments Blood Pressure 128/86 07/27/2017 11:28 AM MANNEQUIN WIG MAKER Pulse 85 07/27/2017 11:28 AM MANNEQUIN WIG MAKER Temperature 37.1 C (98.8 F) 07/27/2017 11:28 AM MANNEQUIN WIG MAKER Respiratory Rate 16 07/27/2017 11:28 AM MANNEQUIN WIG MAKER Oxygen Saturation 99% 07/27/2017 11:28 AM MANNEQUIN WIG MAKER Inhaled Oxygen Concentration - - Weight 59 kg (130 lb) 07/27/2017 11:28 AM MANNEQUIN WIG MAKER Height 160 cm (5' 3) 07/27/2017 11:28 AM MANNEQUIN WIG MAKER Body Mass Index 23.03 07/27/2017 11:28 AM MANNEQUIN WIG MAKER Plan of Treatment Health Maintenance Due Date [...] 2021 ZOSTER VACCINE (1 of 2) 2021 DEPRESSION SCREENING 06/24/2024 COVID-19 VACCINE (1 - 2023-2 5 season) 2025 INFLUENZA VACCINE (#1) 2025 HIB VACCINE Aged [...] age to complete this topic Insurance [facility] Care Teams Clarity Specialists Relationship Specialty Start Date End Date Veena Jalloh MD [address] [place] [id number] PCP - General Family Medicine 07/27/17
--- OUTSIDE RECORDS SUMMARY | 2025-04-16 01:58 | XMS_ITS | Clinical Summary ---
Author Organization [address] Address [address] [place] [address] Care Team Providers Care Gas Well Pumper Name Role Phone Aiden Ann MD Primary [...] on file Legal Sex Female 1:53 AM HOSPICE MANAGER Gender Identity Not on file Sexual [...] patient's age to complete this topic Insurance [facility] CHOICE PLUS Care Teams Gas Well Pumper Relationship Specialty Start Date End Date Aiden Ann MD [address] [facility] [address] [place] [address] PCP - General Family Medicine 09/02/24
--- OUTSIDE RECORDS SUMMARY | 2025-04-16 01:58 | XMS_ITS | Encounter Summary ---
Author Organization [facility] Address [address] [place] [address] Care Team Providers Care Nursery Hand Name Role Phone Unavailable Primary Care Provider Unavailabl e Encounter Details Date Type Department Care Team (Late st Contact Info) Description 08/12/[address] 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
[2025-04-16 13:23] VITALS: BP 124/67; PULSE 78; RESP 18; TEMP 36.5; O2SAT 99
[2025-04-16] MEDS: LACTATED RINGERS 1,000 ML 150 ML IV CONT (13:32)
--- NOTE | 2025-04-16 14:10 | PM.HPGS ---
History of Present Illness History of Present Illness Consent: Risks, benefits, and alternatives have been discussed and questions answered. Patient agrees to proceed with procedure. Chief complaint: Epigastric pain, Gastritis, unspecified, w/o bleed Narrative: Pamela Lan is a 55 year old female with abdominal pain since January, also post prandial diarrhea. CT scan showed Mild thickening of the gastric antrum, suspicious for gastritis. Review of Systems Review of Systems: All systems reviewed & are unremarkable except as noted in HPI and below PMFSH Past Medical History Medical History (Updated 02/11/25 @ 16:41 by Lizett [place] PA-C) Cat scratch fever Hammertoe, bilateral Hallux valgus Deltoid (ligament), ankle sprain Vision abnormalities Seizures Avulsion injury of ankle region Sprain of deltoid ligament of unspecified ankle, subsequent encounter Bilateral bunions HTN (hypertension) Fall Surgical History Surgical History History of section complicating History of laparoscopic cholecystectomy Family History Family History Mother Family history of gallbladder disease Unknown Hypertension Cardiovascular disease Social History Social History Social History: Smoking status: Never smoker Second hand tobacco smoke exposure: No Alcohol intake: current Alcohol use details: Occasionally Substance use: never Substance use type: does not use Do You Feel Safe in your Home?: Yes Lack of Transportation: No Lack of Food: Never True Current Housing: I Have Housing Concerned About Future Housing: No Difficulty Paying Gas/Electric Bills: No Difficulty Paying for Meds: No Currently Unemployed: No Education: Bachelor's Degree Difficulty w/ Childcare or Family Care: No Living arrangements: with family Occupation/Education: occupation 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 Gender identity (if verbalized by the patient): Female Sexual Orientation (if Verbalized by the Patient): Straight or Heterosexual Spiritual care concerns: No Meds Home Medications and Allergies Home Medications ?Medication ?Instructions ?Recorded ?Confirmed ?Type norethindrone (contraceptive) 0.35 0.35 mg PO DAILY 01/05/24 04/16/25 History mg tablet lisinopril 10 1 tablet PO DAILY #90 tabs 07/06/24 04/16/25 Rx mg-hydrochlorothiazide 12.5 mg tablet omeprazole 40 mg capsule,delayed 40 mg PO DAILY #30 caps 02/08/25 04/08/25 Rx release Allergies Allergy/AdvReac Type Severity Reaction Status Date / Time amoxicillin (From Augmentin) AdvReac Intermediate Dizziness Verified 04/16/25 13:25 clavulanic acid (From AdvReac Intermediate Dizziness Verified 04/16/25 13:25 Augmentin) Vital Signs Vital Signs - 24 hr 04/16/25 13:23 Temperature 97.7 F Pulse Rate 78 Respiratory Rate 18 Blood Pressure 124/67 Pulse Oximetry 99 Oxygen Delivery Room Air Exam Const: General: comfortable and no acute distress HENMT: Face/Nose/Sinus: Normal nares present Eyes: General: appearance normal, both eyes and all related structures Neck: Neck: no JVD Resp: Auscultation: clear to auscultation bilaterally Cardio: Rate: regular rate Rhythm: regular rhythm GI: Inspection: non-distended GI Palp: Yes Soft to palpation Skin: General skin exam: normal color Extrem: General: normal to inspection Psych: Mental Status: mental status grossly normal Assessment and Plan Assessment and plan (1) Abdominal pain: Code(s): R10.9 - Unspecified abdominal pain Status: Acute Assessment and Plan: egd with bx
--- NOTE | 2025-04-16 14:14 | P.PNAN_ITS ---
Anes - Initial Pre Proc Eval Procedure: Operation Date: 04/16/25 14:30 Proposed Procedures p Esophagogastroduodenoscopy EGD - Dada Foster MD Date/Time: 04/16/25 14:14 Surgeon: Dada Foster MD Pre Op Diagnosis: Epigastric pain, Gastritis, unspecified, w/o bleed Patient Data Age: 55 Gender: F Height: 1.6 m Weight: 69.8 kg Last Vital Signs Temp 97.7 F 04/16/25 13:23 Pulse 78 04/16/25 13:23 Resp 18 04/16/25 13:23 BP 124/67 04/16/25 13:23 Pulse Ox 99 04/16/25 13:23 O2 Del Method Room Air 04/16/25 13:23 Allergies Allergy/AdvReac Type Severity Reaction Status Date / Time amoxicillin (From Augmentin) AdvReac Intermediate Dizziness Verified 04/16/25 13:25 clavulanic acid (From AdvReac Intermediate Dizziness Verified 04/16/25 13:25 Augmentin) Home Medications ?Medication ?Instructions ?Recorded ?Confirmed ?Type norethindrone (contraceptive) 0.35 0.35 mg PO DAILY 04/16/25 History mg tablet lisinopril 10 1 tablet PO DAILY #90 tabs 0 07/06/24 04/16/25 Rx mg-hydrochlorothiazide 12.5 mg tablet omeprazole 40 mg capsule,delayed 40 mg PO DAILY #30 ca ps 02/08/25 04/08/25 Rx release Patient hx anesthesia problems: none Family hx anesthesia problems: none Results Review: All pre-operative results and documents have been reviewed as part of the pre- operative evaluation. COUNTS INCLUDE 234 BEDS AT THE [facility] Past Medical History Medical History Cat scratch fever Hammertoe, bilateral Hallux valgus Deltoid (ligament), ankle sprain Vision abnormalities Seizures Avulsion injury of ankle region Sprain of deltoid ligament of unspecified ankle, subsequent encounter Bilateral bunions HTN (hypertension) Fall Surgical History Surgical History History of section complicating History of laparoscopic cholecystectomy Family History Family History Mother Family history of gallbladder disease Unknown Hypertension Cardiovascular disease Social History Social History Social History: Smoking status: Never smoker Second hand tobacco smoke exposure: No Alcohol intake: current Alcohol use details: Occasionally Substance use: never Substance use type: does not use Do You Feel Safe in your Home?: Yes Lack of Transportation: No Lack of Food: Never True Current Housing: I Have Housing Concerned About Future Housing: No Difficulty Paying Gas/Electric Bills: No Difficulty Paying for Meds: No Currently Unemployed: No Education: Bachelor's Degree Difficulty w/ Childcare or Family Care: No Living arrangements: with family Occupation/Education: occupation 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 Gender identity (if verbalized by the patient): Female Sexual Orientation (if Verbalized by the Patient): Straight or Heterosexual Spiritual care concerns: No Anes - Eval Final PreProcedure Day of Procedure 04/16/25 14:14 Patient weight: overweight Lungs: normal air movement Airway: Mallampati scale class II Neurological: alert and oriented Last oral intake: >/= 8 hours ASA classification: II Emergent: no Anesthetic plan: proceed Anesthesia type and monitoring: general GIVS and standard monitoring Results Review: All pre-operative results and documents have been reviewed as part of the pre-operative evaluation. HTN, active w riding bike, no cp or sob. Informed Consent: The patient's anesthetic plan and its attendant risks and benefits were discu ssed with the patient/family/POA. Questions were solicited and answers provided to the satisfaction of the patient/family/POA.
[2025-04-16 14:24] VITALS: BP 98/65; PULSE 83; RESP 19; O2SAT 98
--- NOTE | 2025-04-16 14:25 | S_PTH ---
PATIENT: Pamela Lan LOC: [facility]#:[id number] AGE/SX: 55/F ROOM: RE04/16/[address]: Dada Foster MD : 1970 BED: DIS: 04/16/2025 SPEC #: [id number] RECD: 04/19/25 07:08 STATUS: JEANNE REAmanda #: [id number] ANALISA: 04/16/25 14:[address]: Dada Foster DEPT: [facility] Surgical RECD BY: Katie Castellon ENTERED: 04/19/25 07:08 SP TYPE: Surgical OTHR DR: Aiden Ann MD Tissues: A - Small Bowel Bx B - Gastric Biopsy Procedures: Hematoxylin and Eosin Stain Gross and Microscopic Level 4
[2025-04-16 14:34] VITALS: BP 98/62; PULSE 80; RESP 16; O2SAT 98
[2025-04-16 14:44] VITALS: BP 106/63; PULSE 69; RESP 17; O2SAT 99
== END 2025-04-16 15:07 | disposition home or self-care (01) ==
PROVIDERS: PCP Family Medicine; Visit Provider Internal Medicine Gastroenterology
PROC: 0DJ08ZZ Inspection of Upper Intestinal Tract, Via Natural or Artificial Opening Endoscopic (ICD-10-PCS; CPT 43239; principal; 2025-04-16 14:30)
DX: R10.13 Epigastric pain (principal); K31.89 Other diseases of stomach and duodenum
CPT/HCPCS: 43239; 88305; J2003; J2704; J7120